=== PATIENT | male | born 1995 | race Caucasian/White ===

== ENCOUNTER 2017-06-05 14:25 | Emergency (ER) | payer SELFPAY ==
[~2017-06-05] VITALS: Ht 180.3 cm; Wt 70.0 kg
[2017-06-05 14:26] VITALS: BP 122/73; PULSE 106; RESP 15; TEMP 98.9; O2SAT 95
--- NOTE | 2017-06-05 15:43 | PD ---
HPI Chief Complaint: Skin Problem Time Seen by Provider: 15:35 Travel History International Travel<30 days: No Contact w/Intl Traveler<30days: No Traveled to known affect area: No History of Present Illness HPI 21-year-old male presents to the emergency department complaint of a bite to his left elbow 2-3 days ago. Reports redness, warmth, and swelling to the left arm. Reports a tender lump in his left armpit. Denies fever, vomiting. Denies IV drug use. Reports feeling chills. Denies paresthesias, loss of sensation to the affected extremity. Reports decreased range of motion at the elbow. Rates the pain 7-8/10. Describes it as an aching, throbbing, soreness. Has taking ibuprofen for symptom management. Pain is constant. Pain is aggravated with movement of the arm and palpation. Allergies to nickel. Does not have an established primary care provider. Has no medical complaints. No other modifying factors or associated signs and symptoms. PFSH Past Medical History Heart Rhythm Problems: Yes Tetanus Vaccination: Unknown Past Surgical History Other Surgery: Yes (ears) Social History Alcohol Use: No Tobacco Use: No Substance Use: No Allergies-Medications (Allergen,Severity, Reaction): Coded Allergies: nickel (Verified Allergy, Severe, RASH , 06/05/17) Reported Meds & Prescriptions Reported Meds & Active Scripts Active Ibuprofen 800 Mg Tab 800 Mg PO Q6HR PRN Bactrim DS (Sulfamethoxazole-Trimethoprim) 800-160 Mg Tab 1 Tab PO BID 10 Days Keflex (Cephalexin) 500 Mg Cap 500 Mg PO Q6H 10 Days Review of Systems Except as stated in HPI: all other systems reviewed are Neg Physical Exam Narrative GENERAL: Well-nourished, well-developed male patient, in no acute distress; afebrile, nontoxic-appearing SKIN: There is an indurated area to the left medial elbow area which measures about 3 cm in diameter. It is fluctuant and there is a small open area, but no drainage. There is a zone of inflammation around. Palpable lymph node to the left axilla. Left upper extremities supple and non-tense with 2+ radial pulse and sensory intact. HEAD: Atraumatic. Normocephalic. EYES: Pupils equal and round. No scleral icterus. No injection or drainage. ENT: Mucosa pink and moist. Airway patent. NECK: Trachea midline. CARDIOVASCULAR: Regular rate. RESPIRATORY: No accessory muscle use. GASTROINTESTINAL: Flat. MUSCULOSKELETAL: No obvious deformities. No clubbing. No cyanosis. No edema. NEUROLOGICAL: Awake and alert. Oriented 3. No obvious cranial nerve deficits. Motor grossly within normal limits. Normal speech. PSYCHIATRIC: Appropriate mood and affect; insight and judgment normal. Data Data Last Documented VS Vital Signs Date Time Temp Pulse Resp B/P (MAP) Pulse Ox O2 Delivery O2 Flow Rate FiO2 06/05/17 16:22 81 16 135/68 (90) 98 06/05/17 14:26 98.9 Orders Orders Elbow, Complete (4 Vws) (06/05/17 15:43) Ibuprofen (Motrin) (06/05/17 15:45) Wound Culture And Gram Stain (06/05/17 15:43) Tetanus/Diphtheria Tox Adult (Tetanus/Di (06/05/17 15:45) Lidocaine 1% Inj (50 Ml) (Xylocaine 1% I (06/05/17 15:45) Sulfamet-Trimeth Ds 800-160 Mg (Bactrim (06/05/17 16:00) Cephalexin (Keflex) (06/05/17 16:00) Ed Discharge Order (06/05/17 17:28) MDM Medical Decision Making Medical Screen Exam Complete: Yes Emergency Medical Condition: Yes Medical Record Reviewed: Yes Differential Diagnosis Abscess, cellulitis, infected insect bite Narrative Course 21-year-old male with an abscess and cellulitis of his left arm. Patient is afebrile and nontoxic-appearing. Denies fever, vomiting. Denies IV drug use. Tetanus updated in the ER. See my procedure note for I&D. Area of cellulitis marked with a surgical marker. Wound culture pending. Left elbow x-ray ordered to rule out septic joint. 1710: Left elbow x-ray concludes: There is soft tissue swelling in the soft tissues adjacent to the elbow joint; There is no evidence of a joint effusion to indicate a septic joint; The bony structures are intact. Ibuprofen, Keflex and Bactrim administered in the ER. Instructed patient to return to the emergency department in 48 hours for recheck. Discussed reasons to return sooner. Patient verbalized understanding and agreement. Instructed patient to follow up with primary care provider. Patient verbalizes understanding and agreement with treatment plan. Patient is medically cleared and stable for discharge. Discussed reasons to return to the emergency department. Patient agrees with treatment plan. The patients vital signs are stable and the patient is stable for outpatient follow-up and treatment. Patient discharged home, stable and in no acute distress. Procedures Procedure Narrative INCISION AND DRAINAGE OF ABSCESS: The area was prepped and was sterilely draped. A subcutaneous wheal of 1% Xylocaine with a total number 2 mL was used to anesthetize the area properly. A number 11 scalpel was used to make a 1 -cm incision across the area of the abscess. The abscess was drained, complex loculations were broken down, and irrigated with normal saline. Cultures were obtained. Quarter inch iodoform packing was placed in the wound. Sterile dressing applied. Patient advised to have packing removed in two days. Diagnosis Primary Impression: Abscess of left arm Additional Impression: Cellulitis of left arm Referrals: [facility] Primary Care Physician Patient Instructions: Abscess (ED), Abscess Follow-up (ED), Abscess Incision and Drainage (DC), Cellulitis (ED), General Instructions Additional Instructions: Complete full course of antibiotics; Bactrim is free at [facility] and Keflex is $ 10 at [facility] Warm compresses to the affected area Keep area clean and dry Ibuprofen or Tylenol as directed and as needed for pain and inflammation Return to the emergency department in 48 hours for abscess recheck Follow-up with primary care provider Return to emergency department immediately with worsening of symptoms Med/Other Pt SpecificInfo: Prescription(s) given Scripts Ibuprofen (Ibuprofen) 800 Mg Tab 800 MG PO Q6HR Y for PAIN, #30 TAB 0 Refills Prov: Yolanda Degroot 06/05/17 Sulfamethoxazole-Trimethoprim (Bactrim DS) 800-160 Mg Tab 1 TAB PO BID for Infection for 10 Days, #20 TAB 0 Refills Prov: Yolanda DegrootP 06/05/17 Cephalexin (Keflex) 500 Mg Cap 500 MG PO Q6H for Infection for 10 Days, #40 CAP 0 Refills Prov: Yolanda Degroot 06/05/17 Disposition: 01 DISCHARGE HOME Condition: Stable Yolanda Degroot Jun 05, 2017 15:43
[2017-06-05] MEDS ORDERED: IBUPROFEN 800 MG TAB PO ONE (15:45)
[2017-06-05] MEDS ORDERED: TETANUS/DIPHTHERIA TOXOID ADULT 0.5 ML VIAL IM ONE (15:45)
[2017-06-05] MEDS ORDERED: LIDOCAINE HCL 1% 50 ML VIAL INFIL ONE (15:45)
[2017-06-05] MEDS ORDERED: BACT800T5 PO (15:51)
[2017-06-05] MEDS ORDERED: CEPH-460 PO (15:51)
[2017-06-05] MEDS ORDERED: IBUP1TAB7 PO (15:51)
[2017-06-05] MEDS ORDERED: CEPHALEXIN MONOHYDRATE 500 MG CAP PO ONE (16:00)
[2017-06-05] MEDS ORDERED: SULFAMETHOXAZOLE-TRIMETHOPRIM DS 800-160 MG TAB PO ONE (16:00)
--- NOTE | 2017-06-05 16:12 | RADRPT ---
EXAM DATE/TIME: 06/05/2017 15:58 [facility] COMPARISON: No previous studies available for comparison. INDICATIONS : Inflammation, evaluate for septic joint MEDICAL HISTORY : None. SURGICAL HISTORY : None. ENCOUNTER: Initial ACUITY: 3 days PAIN SCORE: 8/10 LOCATION: Left Forearm FINDINGS: Multiple view examination of the left elbow demonstrates no joint effusion, or fracture. There is sof t tissue swelling in the soft tissues adjacent to the elbow joint. The osseous structures are in norm al alignment. Bony mineralization is normal. CONCLUSION: 1. There is soft tissue swelling in the soft tissues adjacent to the elbow joint. 2. There is no evidence of a joint effusion to indicate a septic joint. 3. The bony structures are intact. Alvin Briseno MD on June 05, 2017 at 16:08 Board Certified Radiologist. This report was verified electronically.
[2017-06-05 16:22] VITALS: BP 135/68; PULSE 81; RESP 16; O2SAT 98
== END 2017-06-05 17:50 | disposition home or self-care (01) ==
LOC: NEPD 14:25
DX: L02.414 Cutaneous abscess of left upper limb (principal); L03.114 Cellulitis of left upper limb; B95.62 Methicillin resistant Staphylococcus aureus infection as the cause of diseases classified elsewhere; Z23 Encounter for immunization
CPT/HCPCS: 10061; 73080; 86403; 87070; 87186; 87205; 90471; 90714

== ENCOUNTER 2017-06-07 14:35 | Emergency (ER) | payer SELFPAY ==
[~2017-06-07] VITALS: Ht 180.3 cm; Wt 70.0 kg
[~2017-06-07 14:35] MED LIST: BACT800T5 PO; CEPH-460 PO; IBUP1TAB7 PO
[2017-06-07 14:36] VITALS: BP 120/70; PULSE 82; RESP 13; TEMP 98.6; O2SAT 97
[2017-06-07] MEDS ORDERED: DALBAVANCIN INJ 1,500 MG in DEXTROSE 5% IN WATE 500 ML INJ 500 ML IV STA ×2 (16:57)
[2017-06-07] MEDS ORDERED: MISCELLANEOUS PHARMACY INFORMATION XX ONE (17:00)
[2017-06-07] MEDS ORDERED: ASP: Only reason for admit - IV antibiotics OTHER ONE (17:00)
[2017-06-07] MEDS ORDERED: KETOROLAC TROMETHAMINE 30 MG/ML (IVP) VIAL IVP ONE (17:00)
[2017-06-07] MEDS ORDERED: ASP: No known hypersensitivity to Vanco, Telavancin, Dalbavancin OTHER ONE (17:00)
[2017-06-07] MEDS ORDERED: ASP: Does not meet inpatient admission criteria OTHER ONE (17:00)
[2017-06-07] MEDS ORDERED: ASP: Location of Dalbavancin administration OTHER ONE (17:00)
--- NOTE | 2017-06-07 17:19 | PD ---
HPI Chief Complaint: Wound/Suture/Staple Re-Check Time Seen by Provider: 16:50 Travel History International Travel<30 days: No Contact w/Intl Traveler<30days: No Traveled to known affect area: No History of Present Illness HPI 21-year-old male presents to the emergency room for evaluation of left elbow infection that seems to be getting worse. Infection started 4 days ago. He thought it was a bug bite. Patient came to the emergency room 2 days ago for the same and had incision and drainage. He was started on Bactrim and Keflex and told to return if symptoms worsened. States he has been taking medications as prescribed but the redness has been extending outside the purple line. Patient denies fever, chills, nausea, and vomiting. Denies any chronic medical conditions or daily medications. Denies IV drug use. PFSH Past Medical History Heart Rhythm Problems: Yes Tetanus Vaccination: < 5 Years Past Surgical History Other Surgery: Yes (ears) Social History Alcohol Use: Yes Tobacco Use: No Substance Use: No Allergies-Medications (Allergen,Severity, Reaction): Coded Allergies: nickel (Verified Allergy, Severe, RASH , 06/07/17) Reported Meds & Prescriptions Reported Meds & Active Scripts Active Ibuprofen 800 Mg Tab 800 Mg PO Q6HR PRN Bactrim DS (Sulfamethoxazole-Trimethoprim) 800-160 Mg Tab 1 Tab PO BID 10 Days Keflex (Cephalexin) 500 Mg Cap 500 Mg PO Q6H 10 Days Review of Systems Except as stated in HPI: all other systems reviewed are Neg Physical Exam Narrative GENERAL: Well-nourished, well-developed patient. SKIN: Focused skin assessment warm/dry. There is an indurated area in the left elbow which measures about 5 cm in diameter. It is fluctuant with purulent, spontaneous drainage. Packing in place. There is a zone of inflammation around it but no lymphangitis. HEAD: Normocephalic. EYES: No scleral icterus. No injection or drainage. NECK: Supple, trachea midline. No JVD or lymphadenopathy. CARDIOVASCULAR: Regular rate and rhythm without murmurs, gallops, or rubs. RESPIRATORY: Breath sounds equal bilaterally. No accessory muscle use. MUSCULOSKELETAL: No cyanosis. 2+ radial pulse. Full range of motion of the left upper extremity. Radial, ulnar, and median nerves intact. Moderate edema of the left elbow. Data Data Last Documented VS Vital Signs Date Time Temp Pulse Resp B/P (MAP) Pulse Ox O2 Delivery O2 Flow Rate FiO2 06/07/17 14:36 98.6 82 13 120/70 (87) 97 Orders Orders Complete Blood Count With Diff (06/07/17 16:57) Blood Culture (06/07/17 16:57) Iv Access Insert/Monitor (06/07/17 16:57) Ketorolac Inj (Toradol Inj) (06/07/17 17:00) Comprehensive Metabolic Panel (06/07/17 16:57) Case Management Consult (06/07/17 ) Asp:No Reaction To [place]/Vanc (Asp Crit (06/07/17 17:00) Asp: Does Not Meet Inpt Admit (Asp Crit: (06/07/17 17:00) Asp: Iv Antibiotics Admit Only (Asp Crit (06/07/17 17:00) Asp: Location Of [facility] Admin (Asp Crit: (06/07/17 17:00) [facility] Information ([facility] (06/07/17 17:00) Dal[place]avancin Inj (Dalvance Inj) (06/07/17 16:57) Arsenio Bandage (06/07/17 16:57) Elevate (06/07/17 16:57) Document (06/07/17 16:57) Measurements (06/07/17 16:57) Labs Laboratory Tests Test 06/07/17 17:10 06/07/17 17:25 White Blood Count 9.8 TH/MM3 Red Blood Count 4.38 MIL/MM3 Hemoglobin 13.9 GM/DL Hematocrit 40.7 % Mean Corpuscular Volume 93.0 FL Mean Corpuscular Hemoglobin 31.8 PG Mean Corpuscular Hemoglobin Concent 34.1 % Red Cell Distribution Width 12.5 % Platelet Count 252 TH/MM3 Mean Platelet Volume 8.4 FL Neutrophils (%) (Auto) 70.3 % Lymphocytes (%) (Auto) 19.2 % Monocytes (%) (Auto) 7.6 % Eosinophils (%) (Auto) 2.4 % Basophils (%) (Auto) 0.5 % Neutrophils # (Auto) 6.9 TH/MM3 Lymphocytes # (Auto) 1.9 TH/MM3 Monocytes # (Auto) 0.7 TH/MM3 Eosinophils # (Auto) 0.2 TH/MM3 Basophils # (Auto) 0.1 TH/MM3 CBC Comment DIFF FINAL Differential Comment Blood Urea Nitrogen 12 MG/DL Creatinine 0.89 MG/DL Random Glucose 75 MG/DL Total Protein 7.5 GM/DL Albumin 3.7 GM/DL Calcium Level 8.7 MG/DL Alkaline Phosphatase 108 U/L Aspartate Amino Transf (AST/SGOT) 23 U/L Alanine Aminotransferase (ALT/SGPT) 20 U/L Total Bilirubin 0.9 MG/DL Sodium Level 135 MEQ/L Potassium Level 3.9 MEQ/L Chloride Level 102 MEQ/L Carbon Dioxide Level 25.5 MEQ/L Anion Gap 8 MEQ/L Estimat Glomerular Filtration Rate 107 ML/MIN [facility] Medical Decision Making Medical Screen Exam Complete: Yes Emergency Medical Condition: Yes Medical Record Reviewed: Yes Differential Diagnosis Cellulitis, abscess, failed outpatient therapy, septic arthritis, infected olecranon bursitis Narrative Course 21-year-old male presents to the emergency room for evaluation of left elbow abscess that started 4 days ago. Patient came to the ER 2 days ago for the same and had I&D and was prescribed Bactrim and Keflex. States he is taking medications as directed but the abscess seems to be worsening. Denies fever, chills, nausea, vomiting. Vital signs stable. Patient is well-appearing. Physical exam reveals a large area of induration with spontaneous, purulent drainage from the left elbow. Packing was removed. The erythema extends outside the peripheral line drawn 2 days ago. Patient has full range motion of the left upper extremity and it is neurovascularly intact with 2+ radial pulse. Radial, ulnar, and median nerves intact. No evidence of sepsis. IV access established and basic labs obtained. Cultures from 2 days ago show susceptibility to Bactrim and Keflex. Patient has failed outpatient therapy. CBC and CMP are unremarkable. He was given Dalvance the ED. He is stable for discharge. Diagnosis Primary Impression: Cellulitis of left upper extremity Referrals: Primary Care Physician Additional Instructions: Keep wound clean and dry. Apply triple antibiotic ointment daily. Take ibuprofen with food as directed, as needed for pain. Follow-up with a primary care physician. Return to the emergency room for worsening symptoms. Disposition: 01 DISCHARGE HOME Condition: Stable Maria Antonia Dumont Jun 07, 2017 17:19
[2017-06-07 17:30] LABS: AUTOMATED NEUTROPHIL # 6.9 TH/MM3 (1.8-7.7); BASOPHIL # 0.1 TH/MM3 (0-0.2); BASOPHIL % 0.5 % (0.0-2.0); EOSINOPHIL # 0.2 TH/MM3 (0-0.4); EOSINOPHIL % 2.4 % (0.0-4.0); HEMATOCRIT 40.7 % (39.0-51.0); HEMO FLAGS DIFF FINAL; LYMPH % 19.2 % (9.0-44.0); LYMPHOCYTE # 1.9 TH/MM3 (1.0-4.8); MEAN CORPUSCULAR HEMOGLOBIN 31.8 PG (27.0-34.0); MEAN CORPUSCULAR HGB CONC 34.1 % (32.0-36.0); MONO % 7.6 % (0.0-8.0); NEUT % 70.3 % (16.0-70.0); PLATELET COUNT 252 TH/MM3 (150-450); RED BLOOD COUNT 4.38 MIL/MM3 (4.50-5.90); RED CELL DISTRIBUTION WIDTH 12.5 % (11.6-17.2); WHITE BLOOD COUNT 9.8 TH/MM3 (4.0-11.0)
[2017-06-07 18:04] LABS: ALT (GPT) 20 U/L (12-78); ANION GAP 8 MEQ/L (5-15); AST (GOT) 23 U/L (15-37); BICARBONATE 25.5 MEQ/L (21.0-32.0); BLOOD UREA NITROGEN 12 MG/DL (7-18); CHLORIDE 102 MEQ/L (98-107); GLOMERULAR FILTRATION RATE 107 ML/MIN (>89); POTASSIUM 3.9 MEQ/L (3.5-5.1); SODIUM (NA) 135 MEQ/L (136-145)
[2017-06-07 18:06] LABS: ALKALINE PHOSPHATASE 108 U/L (45-117); TOTAL BILIRUBIN ADULT 0.9 MG/DL (0.2-1.0)
[2017-06-07 19:10] VITALS: BP 109/55; PULSE 56; RESP 18; TEMP 98.2; O2SAT 99
[2017-06-07 19:55] VITALS: BP 107/63; PULSE 68; RESP 18; O2SAT 99
== END 2017-06-07 20:08 | disposition home or self-care (01) ==
LOC: NEPD 14:35
DX: L03.114 Cellulitis of left upper limb (principal); B95.62 Methicillin resistant Staphylococcus aureus infection as the cause of diseases classified elsewhere; Z16.19 Resistance to other specified beta lactam antibiotics; Z16.11 Resistance to penicillins; Z16.29 Resistance to other single specified antibiotic
CPT/HCPCS: 80053; 85025; 87040; 96365; 96375; 99284; J0875; J1885; J7060